=== PATIENT | female | born 1980 | race Caucasian/White ===

== ENCOUNTER 2018-03-30 10:45 | Emergency (ER) | payer OTHER ==
[2018-03-30 10:57] VITALS: RESP 16
[2018-03-30] MEDS ORDERED: Sodium Chloride 0.9% 1,000 ML IV ONE (11:16)
--- NOTE | 2018-03-30 11:20 | C.PDOC ---
History Of Present Illness 37 yo female , LNMP 02/05/18, come in for evaluation of diffuse lower abdominal cramping associated with mild vaginal bleeding developed 4 days ago " after was seen at clinic by SIGNALS COLLECTOR/ANALYST and got medication to terminate my ". Pt reports, pain is more right groin and suprapubic, aching, non-radiating, worsen over day. Otherwise, pt denies fever, chills, headache, dizziness, CP, SOB, N/V/D, vaginal irritation, back pain, UTI sx. Denies previous hx of ectopic . Time Seen by Provider: 03/30/18 11:06 Chief Complaint (Nursing): Abdominal Pain History Per: Patient Past Medical History Reviewed: Historical Data, Nursing Documentation, Vital Signs Vital Signs: Last Vital Signs Temp 98.0 F 03/30/18 13:13 Pulse 56 L 03/30/18 13:13 Resp 16 03/30/18 13:13 BP 100/62 03/30/18 13:13 Pulse Ox 98 03/30/18 13:46 - Medical History PMH: No Chronic Diseases Surgical History: Family History: States: No Known Family Hx - Social History Hx Tobacco Use: No Hx Alcohol Use: No Hx Substance Use: No - Immunization History Hx Tetanus Toxoid Vaccination: No Hx Influenza Vaccination: No Hx Pneumococcal Vaccination: No Review Of Systems Except As Marked, All Systems Reviewed And Found Negative. Constitutional: Negative for: Fever, Chills ENT: Negative for: Throat Pain Cardiovascular: Negative for: Chest Pain, Palpitations Respiratory: Negative for: Shortness of Breath, Wheezing Gastrointestinal: Positive for: Abdominal Pain. Negative for: Nausea, Vomiting , Diarrhea, Melena, Hematochezia, Hematemesis Genitourinary: Positive for: Vaginal Bleeding. Negative for: Dysuria, Frequency Musculoskeletal: Negative for: Neck Pain, Back Pain Skin: Negative for: Rash Neurological: Negative for: Weakness, Numbness, Headache, Dizziness Physical Exam - Physical Exam Appears: Well, Non-toxic, No Acute Distress Skin: Normal Color, Warm, Dry, No Rash Head: Normacephalic Eye(s): bilateral: PERRL Nose: No Flaring, No Discharge Oral Mucosa: Moist Lips: Normal Appearing Throat: No Erythema Neck: Normal ROM, Trachea Midline, Supple Cardiovascular: Rhythm Regular, No Murmur, No JVD Respiratory: No Decreased Breath Sounds, No Accessory Muscle Use, No Stridor, No Wheezing Gastrointestinal/Abdominal: Soft, Tenderness (mild suprapubic), No Distention, No Guarding, No Rebound, Other (Right groin tenderness) Back: No CVA Tenderness Extremity: Normal ROM, No Deformity, No Swelling Neurological/Psych: Oriented x3, Normal Speech ED Course And Treatment - Laboratory Results Result Diagrams: 03/30/18 11:38 03/30/18 11:38 Lab Interpretation: No Acute Changes Urine POC: Positive O2 Sat by Pulse Oximetry: 98 Pulse Ox Interpretation: Normal - CT Scan/US OB US Other Rad Studies (CT/US): Radiology Report Reviewed CT/US Interpretation: Tool Or Die Drawing Checker : Mark Barrios MD. Approver2 : Report Date : 03/30/2018 12:36:10. My Comment : . PROCEDURE: OB Pelvic Ultrasound. HISTORY: abdominal pain, bleeding. COMPARISON: None available. FINDINGS: UTERUS: Single Live intrauterine gestation. CRL is 7 mm equivalent to 6 weeks 4 days gestational age. Gestational sac diameter is 17 mm equivalent to 6 weeks 0 days gestational age. age (Ultrasound estimated) : 6 weeks 2 days. Date of delivery (Ultrasound estimated) : 11/21/2018. Heart rate: 105 bpm. Maria Luisa-gestational hemorrhage: None. 3 mm yolk sac is visualized. Uterus measures 10.5 x 6.3 x 6.1 cm. No mass. CERVIX: Cervix closed and measures 3.5 cm in length. RIGHT OVARY: Measures 4.0 x 02.0 x 3.3 cm. Right ovarian corpus luteum noted. No mass. Normal flow. LEFT OVARY: Measures 3.9 x 2.3 x 3.1 cm. No mass. Normal flow. FREE FLUID: None. OTHER FINDINGS: None. IMPRESSION: Single live intrauterine gestation of approximately 6 weeks 2 days gestational age. JACQUI 11/21/2018. heart rate 105 beats per minute. No perigestational hemorrhage. 3 mm yolk sac. Cervix long and closed. . Progress Note: On re-eval, pt is afebrile, hemodynamically stable. Pt reports, mod improvement in pain. Non-toxic. Ambulatory in ED with stable gait. PulseOx 99% on RA. ENT: no acute findings. Neck: Supple, (-) JVD, (-) carotid bruits B /L. Lungs: CTA B/L, BS equal B/L. Abd: benign, (-) guarding, (-) rebound. Back : (-) CVA tenderness. Neurologically intact. Blood work review and appears without acute abnormalities. preg (+). Beta quant 23,169. US results review ( +)single IUP, 6wks 2ds, (+) HR @105/min. No other abnormalities noted. [facility], [address] [place], [place] [address] spoke with racing secretary?. Received info, pt was seen on 03/20/18 when received tx for termination of " one pill in office and received 4 suppositories to follow 4 nights". Case discussed with SIGNALS COLLECTOR/ANALYST-on-call , pt has clinical findings c/w in progression, termination of treatment by history, r/o threatened . Discharge with outpt f/u recommend at present time. Results review and discussed with pt. Pt advised and ref. to F/U with SIGNALS COLLECTOR/ANALYST In 1-2 days for re-eval. return to ED if any worsening or new changes. Disposition Counseled Patient/Family Regarding: Studies Performed, Diagnosis, Need For Followup - Disposition [facility]errals: [facility] [Outside] Disposition: HOME/ ROUTINE Disposition Time: 13:06 Condition: STABLE Additional Instructions: Encourage fluids Take pain medication as for prescribed by [facility] as need for pain Follow up with SIGNALS COLLECTOR/ANALYST in 1-2 days for re-evaluation. return to ED if any worsening or new changes. Instructions: Threatened Miscarriage Forms: [employer] ([place]) - Clinical Impression Clinical Impression: Threatened
[2018-03-30] MEDS ORDERED: Sodium Chloride 0.9% 1,000 ML ONE (11:24)
[2018-03-30 11:42] LABS: BASO % 0.2 % (0.0-2.0); EOS % 0.6 % (0.0-4.0); HEMOGLOBIN 12.9 g/dL (11.0-16.0); LYMPH # 1.2 K/uL (1.0-4.3); LYMPH % 25.2 % (20.0-40.0); MEAN CELL VOLUME 83.9 fL (81.0-99.0); MEAN CORPUSCULAR HEMOGLOBIN 29.3 pg (27.0-31.0); MEAN CORPUSCULAR HGB CONC 34.9 g/dL (33.0-37.0); MEAN PLATELET VOLUME 9.5 fL (7.2-11.7); MONO # 0.4 K/uL (0.0-0.8); MONO % 8.9 % (0.0-10.0); NEUT # 3.2 K/uL (1.8-7.0); NEUT % 65.1 % (50.0-75.0); RBC 4.42 Mil/uL (3.80-5.20); RED CELL DISTRIBUTION WIDTH 14.4 % (11.5-14.5); WHITE BLOOD COUNT 4.9 K/uL (4.8-10.8)
[2018-03-30 11:48] LABS: HCG,QUALITATIVE URINE POSITIVE (NEGATIVE)
[2018-03-30 11:57] LABS: BLOOD UREA NITROGEN 12 mg/dL (7-17); CALCIUM 9.3 mg/dl (8.6-10.4); GFR AFRICAN-AMERICAN > 60; GFR NON-AFRICAN AMERICAN > 60
[2018-03-30 12:01] LABS: SQUAMOUS EPITHIAL 4 /hpf (0-5); URINE BILIRUBIN NEGATIVE (NEGATIVE); URINE BLOOD 3+ (NEGATIVE); URINE CLARITY Clear (Clear); URINE COLOR Yellow (YELLOW); URINE GLUCOSE (UA) NORMAL (Normal); URINE LEUKOCYTE ESTERASE NEG Leu/uL (Negative); URINE PROTEIN NEGATIVE (NEGATIVE); URINE UROBILINOGEN NORMAL mg/dL (0.2-1.0)
--- NOTE | 2018-03-30 12:37 | US ---
PROCEDURE: OB Pelvic Ultrasound HISTORY: abdominal pain, bleeding COMPARISON: None available. FINDINGS: UTERUS: Single Live intrauterine gestation. CRL is 7 mm equivalent to 6 weeks 4 days gestational age. Gestational sac diameter is 17 mm equivalent to 6 weeks 0 days gestational age. age (Ultrasound estimated): 6 weeks 2 days Date of delivery (Ultrasound estimated) : 11/21/2018 Heart rate: 105 bpm. Maria Luisa-gestational hemorrhage: None. 3 mm yolk sac is visualized. Uterus measures 10.5 x 6.3 x 6.1 cm. No mass CERVIX: Cervix closed and measures 3.5 cm in length. RIGHT OVARY: Measures 4.0 x 02.0 x 3.3 cm. Right ovarian corpus luteum noted. No mass. Normal flow. LEFT OVARY: Measures 3.9 x 2.3 x 3.1 cm. No mass. Normal flow. FREE FLUID: None. OTHER FINDINGS: None. IMPRESSION: Single live intrauterine gestation of approximately 6 weeks 2 days gestational age. JACQUI 11/21/2018. heart rate 105 beats per minute. No perigestational hemorrhage. 3 mm yolk sac. Cervix long and closed.
[2018-03-30 13:17] VITALS: BP 100/62; PULSE 56; TEMP 98
[2018-03-30 13:44] VITALS: O2SAT 98
== END 2018-03-30 14:00 | disposition home or self-care (01) ==
LOC: C.ER 10:45
DX: O20.0 Threatened abortion (principal); Z3A.01 Less than 8 weeks gestation of pregnancy
CPT/HCPCS: 76805; 76817; 80048; 81001; 84702; 84703; 85025; 86850; 86900; 96361; 96374; 99285; J1885; J7030